=== PATIENT | male | born 1990 | race Caucasian/White ===

== ENCOUNTER 2019-09-15 22:25 | Emergency (ER) | payer MEDICAID ==
[~2019-09-15] VITALS: Ht 170.2 cm; Wt 85.7 kg
[2019-09-15 22:25] VITALS: BP 129/61
--- NOTE | 2019-09-15 22:25 | NUR ---
TO BED # 08 AMBULATORY
--- NOTE | 2019-09-15 22:37 | NUR ---
Dr. Severino examining patient.
--- NOTE | 2019-09-15 22:39 | NUR ---
28 Y/O MALE C/O CHEST TIGHTNESS AND DIZZINESS X 3 DAYS. PT STATES 2/10 PRESSURE TO STERNAL CHEST. STATES WHEN PAIN OCCURS HE FEELS SHORT OF BREATH. RR EVEN AND UNLABORED. PT STATES PAIN IS INTERMITTENT FOR "A FEW MONTHS". PAIN IS PROVOKED BY RAISING LEGS AND EATING FATTY FOOD PER PT. PT DENIES N/V/D. PT SITTING IN SEMI FOWLERS POSITION, CALM AND PLEASANT. VSS. MEDHX: HLD ALLERGIES: NKA
[2019-09-15] MEDS ORDERED: FAMOTIDINE 20 MG TAB PO ONE (22:45)
[2019-09-15 22:51] VITALS: BP 129/61
--- NOTE | 2019-09-15 22:51 | NUR ---
PT LEFT BEFORE MEDICATIONS COULD BE RE-EVLAUATED.
== END 2019-09-15 22:51 | disposition home or self-care (01) ==
LOC: MED 22:25
DX: K21.9 Gastro-esophageal reflux disease without esophagitis (principal); E78.5 Hyperlipidemia, unspecified; F17.200 Nicotine dependence, unspecified, uncomplicated; F12.90 Cannabis use, unspecified, uncomplicated; Z87.442 Personal history of urinary calculi; Z90.49 Acquired absence of other specified parts of digestive tract; Z71.6 Tobacco abuse counseling
CPT/HCPCS: 93005; 99283